=== PATIENT | female | born 1975 | race Caucasian/White ===

== ENCOUNTER 2023-04-22 15:13 | Emergency (ER) | payer SELFPAY ==
[~2023-04-22] VITALS: Ht 160 cm; Wt 111.0 kg
[~2023-04-22 15:13] MED LIST: ELIMITE52 TOP; ZITHROMAX250 MG PO
[2023-04-22 15:18] VITALS: BP 141/47
[2023-04-22 15:30] VITALS: BP 115/75
[2023-04-22 15:45] VITALS: BP 131/75
[2023-04-22 16:00] VITALS: BP 140/86
[2023-04-22] MEDS ORDERED: NAPROXEN500 MG PO (16:01)
[2023-04-22 16:05] VITALS: BP 140/86
== END 2023-04-22 16:19 | disposition home or self-care (01) | DRG 563 ==
LOC: ED 15:13
DX: S93.401A Sprain of unspecified ligament of right ankle, initial encounter (principal); F17.200 Nicotine dependence, unspecified, uncomplicated; W17.2XXA Fall into hole, initial encounter; Y92.481 Parking lot as the place of occurrence of the external cause